=== PATIENT | female | born 1945 | race Caucasian/White ===

== ENCOUNTER 2017-02-23 07:38 | Emergency (ER) | payer MEDICARE, OTHER ==
[2017-02-23 07:44] VITALS: BP 113/63
[2017-02-23] MEDS ORDERED: HYDROXYZINE HCL 10 MG TABLET PO ONE (08:15)
--- NOTE | 2017-02-23 08:15 | ER Document Report ---
ED Skin Rash/Insect Bite/Abscs - General Chief Complaint: Bee Sting Stated Complaint: POSSIBLE INSECT BITE Time Seen by Provider: 02/23/17 07:58 Mode of Arrival: Ambulatory Information source: Patient Notes: Patient is a 71-year-old female who presents to the ER today for bee sting yesterday at noon to her left eyelid. Patient states that it did not start swelling or turning red until this morning when she woke up. Patient states that it is red and a little swollen, she denies any blurred vision, eye pain, trouble breathing, hives anywhere or other symptoms. TRAVEL OUTSIDE OF THE [place] IN LAST 30 DAYS: No - Related Data Allergies/Adverse Reactions: amoxicillin Allergy (Verified 02/23/17 07:44) ciprofloxacin [From Cipro] Allergy (Verified 02/23/17 07:44) ciprofloxacin HCl [From Cipro] Allergy (Verified 02/23/17 07:44) Sulfa (Sulfonamide Antibiotics) Allergy (Verified 02/23/17 07:44) Past Medical History - General Information source: Patient - Social History Smoking Status: Never Smoker Chew tobacco use (# tins/day): No Frequency of alcohol use: None Drug Abuse: None Family History: Reviewed & Not Pertinent - Past Medical History Cardiac Medical History: Reports: Hx Hypertension Renal/ Medical History: Denies: Hx Peritoneal Dialysis Musculoskeltal Medical History: Reports Hx Arthritis Past Surgical History: Reports: Hx Section, Hx Cholecystectomy, Hx Orthopedic Surgery - Carpal tunnel, Rotator cuff bilat great toe Tonsils, Hx Tonsillectomy - Immunizations Immunizations up to date: Yes Hx Diphtheria, Pertussis, Tetanus Vaccination: Yes Review of Systems - Review of Systems Constitutional: No symptoms reported EENT: No symptoms reported Cardiovascular: No symptoms reported Respiratory: No symptoms reported Gastrointestinal: No symptoms reported Genitourinary: No symptoms reported Female Genitourinary: No symptoms reported Musculoskeletal: No symptoms reported Skin: See HPI Hematologic/Lymphatic: No symptoms reported Neurological/Psychological: No symptoms reported Physical Exam - Vital signs Vitals: Temp Pulse Resp BP Pulse Ox 98.4 F 56 L 18 113/63 99 02/23/17 07:39 02/23/17 07:39 02/23/17 07:39 02/23/17 07:39 02/23/17 07:39 - Notes Notes: PHYSICAL EXAMINATION: GENERAL: Well-appearing and in no acute distress. HEAD: Atraumatic, normocephalic. EYES: Pupils equal round and reactive to light, extraocular movements intact, sclera anicteric, conjunctiva are normal. ENT: Airway patent NECK: Normal range of motion, supple without lymphadenopathy LUNGS: CTAB and equal. No wheezes rales or rhonchi. HEART: Regular rate and rhythm without murmurs EXTREMITIES: Normal range of motion, no pitting edema. No cyanosis. NEUROLOGICAL: Cranial nerves grossly intact. Normal sensory/motor exams. PSYCH: Normal mood, normal affect. SKIN: Warm, Dry, normal turgor, erythema to left upper eyelid only, no edema or discharge noted Course - Vital Signs Vital signs: Temp Pulse Resp BP Pulse Ox 98.4 F 56 L 16 113/63 99 02/23/17 07:39 02/23/17 07:39 02/23/17 07:55 02/23/17 07:39 02/23/17 07:39 Discharge - Discharge Clinical Impression: Bee sting Qualifiers: Encounter type: initial encounter Injury intent: accidental or unintentional Qualified Code(s): T63.441A - Toxic effect of venom of bees, accidental ( unintentional), initial encounter Condition: Stable Disposition: HOME, SELF-CARE Additional Instructions: Return immediately for any new or worsening symptoms. Follow up with primary care provider, call tomorrow to make followup appointment. Prescriptions: Hydroxyzine HCl 10 mg PO Q8 PRN #15 tablet PRN Reason:
== END 2017-02-23 08:20 | disposition home or self-care (01) ==
LOC: ER 07:38
DX: T63.441A Toxic effect of venom of bees, accidental (unintentional), initial encounter (principal); L53.0 Toxic erythema; I10 Essential (primary) hypertension; Z88.0 Allergy status to penicillin; Z88.1 Allergy status to other antibiotic agents; Z88.2 Allergy status to sulfonamides
CPT/HCPCS: 99282; A9270

== ENCOUNTER 2017-11-23 19:22 | Emergency (ER) | payer MEDICARE, OTHER ==
--- NOTE | 2017-11-23 20:12 | ER Document Report ---
ED Medical Screen (RME) - General Chief Complaint: Abdominal Pain Stated Complaint: ABDOMINAL PAIN Time Seen by Provider: 11/23/17 20:06 Notes: This 72-year-old female patient had colonoscopy with polypectomy done and [place] this morning. About 4 PM this afternoon she developed mid abdominal pain with a temperature of 100. She took Tylenol for her fever. There is no nausea or vomiting. I have greeted and performed a rapid initial assessment of this patient. A comprehensive ED assessment and evaluation of the patient, analysis of test results and completion of the medical decision making process will be conducted by additional ED providers. TRAVEL OUTSIDE OF THE [place] IN LAST 30 DAYS: No - Related Data Allergies/Adverse Reactions: amoxicillin Allergy (Verified 02/23/17 07:44) ciprofloxacin [From Cipro] Allergy (Verified 02/23/17 07:44) ciprofloxacin HCl [From Cipro] Allergy (Verified 02/23/17 07:44) Sulfa (Sulfonamide Antibiotics) Allergy (Verified 02/23/17 07:44) Past Medical History - Social History Chew tobacco use (# tins/day): No Frequency of alcohol use: None Drug Abuse: None - Past Medical History Cardiac Medical History: Reports: Hx Hypertension Renal/ Medical History: Denies: Hx Peritoneal Dialysis Musculoskeltal Medical History: Reports Hx Arthritis Past Surgical History: Reports: Hx Section, Hx Cholecystectomy, Hx Orthopedic Surgery - Carpal tunnel, Rotator cuff bilat great toe Tonsils, Hx Tonsillectomy - Immunizations Immunizations up to date: Yes Hx Diphtheria, Pertussis, Tetanus Vaccination: Yes Physical Exam - Vital signs Vitals: Temp Pulse Resp BP Pulse Ox 98.9 F 72 20 122/54 L 97 11/23/17 19:26 11/23/17 19:26 11/23/17 19:26 11/23/17 19:26 11/23/17 19:26 Course - Vital Signs Vital signs: Temp Pulse Resp BP Pulse Ox 98.9 F 72 20 122/54 L 97 11/23/17 19:26 11/23/17 19:26 11/23/17 19:26 11/23/17 19:26 11/23/17 19:26
[2017-11-23 20:41] LABS: ABSOLUTE EOSINOPHILS # (AUTO) 0.4 10^3/uL (0.0-0.6); ABSOLUTE LYMPHOCYTES (AUTO) 1.9 10^3/uL (0.5-4.7); ABSOLUTE MONOCYTES (AUTO) 0.6 10^3/uL (0.1-1.4); ABSOLUTE NEUT (AUTO) 8.6 10^3/uL (1.7-8.2); BASOPHILS % (AUTO) 0.4 % (0-2); EOSINOPHILS % (AUTO) 3.2 % (0-6); HEMATOCRIT 33.4 % (36.0-47.0); HEMOGLOBIN 11.3 g/dL (12.0-15.5); LYMPHOCYTES % (AUTO) 16.6 % (13-45); MEAN CORPUSCULAR HGB CONC 33.8 g/dL (32.0-36.0); MEAN CORPUSCULAR VOLUME 89 fl (80-97); MONOCYTES % (AUTO) 4.9 % (3-13); PLATELET COUNT 245 10^3/uL (150-450); RED BLOOD COUNT 3.76 10^6/uL (3.72-5.28); RED CELL DISTRIBUTION WIDTH 14.1 % (11.5-14.0); SEGMENTED NEUTROPHILS % (AUTO) 74.9 % (42-78); TOTAL CELLS COUNTED % (AUTO) 100 %; WHITE BLOOD COUNT 11.5 10^3/uL (4.0-10.5)
--- NOTE | 2017-11-23 20:51 | RADIOLOGY REPORT (SQ) ---
EXAM DESCRIPTION: ACUTE ABDOMEN SERIES COMPLETED DATE/TIME: 11/23/2017 8:36 pm REASON FOR STUDY: Colonoscopy w/polypectomy this AM,mid-abd pain,fev COMPARISON: None. NUMBER OF VIEWS: Three views. TECHNIQUE: Frontal chest, supine abdomen and upright/decubitus abdomen radiographic images acquired. LIMITATIONS: None. FINDINGS: CHEST: Lungs clear of infiltrates. FREE AIR: None. No abnormal gas collections. BOWEL GAS PATTERN: Nonobstructive pattern. No dilated loops or air fluid levels. CALCIFICATIONS: No suspicious calcifications. HARDWARE: None in the abdomen. Hardware in the shoulders. SOFT TISSUES: No gross mass or suggestion of organomegaly. BONES: No acute fracture. No worrisome bone lesions. OTHER: No other significant finding. IMPRESSION: NO RADIOGRAPHIC EVIDENCE FOR ACUTE ABDOMINAL DISEASE. TECHNICAL DOCUMENTATION: JOB ID: [id number] [employer]- All Rights Reserved Reading location - IP/workstation name: [email or web address]
[2017-11-23 21:00] LABS: ALANINE AMINOTRANSFERASE 85 U/L (9-52); ALKALINE PHOSPHATASE 97 U/L (38-126); ANION GAP 10 (5-19); ASPARTATE AMINO TRANSFERASE 71 U/L (14-36); BILIRUBIN,DIRECT 0.2 mg/dL (0.0-0.4); BILIRUBIN,TOTAL 0.3 mg/dL (0.2-1.3); BLOOD UREA NITROGEN 15 mg/dL (7-20); CALCIUM 9.6 mg/dL (8.4-10.2); CARBON DIOXIDE 31 mmol/L (22-30); CHLORIDE 104 mmol/L (98-107); GLUCOSE 117 mg/dL (75-110); POTASSIUM 3.7 mmol/L (3.6-5.0); SODIUM 144.9 mmol/L (137-145); TOTAL PROTEIN 6.4 g/dL (6.3-8.2)
--- NOTE | 2017-11-23 21:01 | ER Document Report ---
ED GI/ - General Chief Complaint: Abdominal Pain Stated Complaint: ABDOMINAL PAIN Time Seen by Provider: 11/23/17 20:06 Notes: The patient is a 72-year-old female who presents with mid abdominal pain and temperature of 100. She had a routine colonoscopy with polypectomy done in [place] earlier this morning. At 4 PM, her symptoms started. She took Tylenol for her temperature. She denies nausea or vomiting. Denies diarrhea, constipation, hematemesis, blood in her stool, dysuria or flank pain. TRAVEL OUTSIDE OF THE [place] IN LAST 30 DAYS: No - Related Data Allergies/Adverse Reactions: amoxicillin Allergy (Verified 02/23/17 07:44) ciprofloxacin [From Cipro] Allergy (Verified 02/23/17 07:44) ciprofloxacin HCl [From Cipro] Allergy (Verified 02/23/17 07:44) Sulfa (Sulfonamide Antibiotics) Allergy (Verified 02/23/17 07:44) Past Medical History - General Information source: Patient - Social History Smoking Status: Never Smoker Chew tobacco use (# tins/day): No Frequency of alcohol use: None Drug Abuse: None Family History: Reviewed & Not Pertinent Patient has suicidal ideation: No Patient has homicidal ideation: No - Past Medical History Cardiac Medical History: Reports: Hx Hypertension Renal/ Medical History: Denies: Hx Peritoneal Dialysis Musculoskeltal Medical History: Reports Hx Arthritis Past Surgical History: Reports: Hx Section, Hx Cholecystectomy, Hx Orthopedic Surgery - Carpal tunnel, Rotator cuff bilat great toe Tonsils, Hx Tonsillectomy - Immunizations Immunizations up to date: Yes Hx Diphtheria, Pertussis, Tetanus Vaccination: Yes Review of Systems - Review of Systems Notes: REVIEW OF SYSTEMS: CONSTITUTIONAL: -fevers, -chills EENT: -eye pain, -difficulty swallowing, -nasal congestion CARDIOVASCULAR: -chest pain, -syncope. RESPIRATORY: -cough, -SOB GASTROINTESTINAL: +mid abdominal pain, -nausea, -vomiting, -diarrhea GENITOURINARY: -dysuria, -hematuria MUSCULOSKELETAL: -back pain, -neck pain SKIN: -rash or skin lesions. HEMATOLOGIC: -easy bruising or bleeding. LYMPHATIC: -swollen, enlarged glands. NEUROLOGICAL: -altered mental status or loss of consciousness, -headache, - neurologic symptoms PSYCHIATRIC: -anxiety, -depression. ALL OTHER SYSTEMS REVIEWED AND NEGATIVE. Physical Exam - Vital signs Vitals: Temp Pulse Resp BP Pulse Ox 98.9 F 72 20 122/54 L 97 11/23/17 19:26 11/23/17 19:26 11/23/17 19:11/23/17 19:11/23/17 19:26 - Notes Notes: PHYSICAL EXAMINATION: GENERAL: Well-appearing, well-nourished and in no acute distress. HEAD: Atraumatic, normocephalic. EYES: Pupils equal round and reactive to light, extraocular movements intact, sclera anicteric, conjunctiva are normal. ENT: nares patent, oropharynx clear without exudates. Moist mucous membranes. NECK: Normal range of motion, supple without lymphadenopathy LUNGS: Breath sounds clear to auscultation bilaterally and equal. No wheezes rales or rhonchi. HEART: Regular rate and rhythm without murmurs ABDOMEN: Soft, mild periumbilical tenderness, normoactive bowel sounds. No guarding, no rebound. No masses appreciated. EXTREMITIES: Normal range of motion, no pitting or edema. No cyanosis. NEUROLOGICAL: Cranial nerves grossly intact. Normal speech, normal gait. Normal sensory and motor exams. PSYCH: Normal mood, normal affect. SKIN: Warm, Dry, normal turgor, no rashes or lesions noted. Course - Re-evaluation Re-evalutation: Patient seen with abdominal pain after a colonoscopy. Right x-ray does not show any free air, but CT abdomen/pelvis obtained due to her tenderness. No CT evidence for bowel perforation and she feels much better while in the emergency room. Provide her a copy of her CAT scan report, which shows possible malignant paraesophageal lymph node and right adnexal mass. Patient said that she has known esophageal dysmotility and has had multiple EGDs for this evaluation, so esophageal neoplasm is less likely. She has also seen a mechanical ordnance assembler for this cyst. Told her that she must follow-up with the mechanical ordnance assembler for comparison. She feels much better while in the ER and is passing a large amount of gas. Instructed her to stay hydrated and hold her blood pressure medications for the next 2 days. Given very strict return precautions and she understands. - Vital Signs Vital signs: Temp Pulse Resp BP Pulse Ox 98.6 F 72 16 111/50 L 96 11/23/17 23:23 11/23/17 19:26 11/23/17 23:23 11/23/17 23:23 11/23/17 23:23 - Laboratory Result Diagrams: 11/23/17 20:20 11/23/17 20:20 Laboratory results interpreted by me: 11/23/17 11/23/17 20:20 20:20 WBC 11.5 H Hgb 11.3 L Hct 33.4 L RDW 14.1 H Absolute Neutrophils 8.6 H Carbon Dioxide 31 H Est GFR (Non-Af Amer) 50 L Glucose 117 H AST 71 H ALT 85 H - Diagnostic Test Radiology reviewed: Image reviewed, Reports reviewed Radiology results interpreted by me: Abdominal x-ray: NAD CT A/P: 1. No CT evidence for bowel perforation. Dilated small bowel loop in the left upper quadrant measuring 3.5 cm in diameter, may represent focal ileus. 2. Colonic diverticulosis. Duodenal diverticulum. 3. A 3.2 cm cystic lesion at the right adnexa. This can be better evaluated with pelvic ultrasound. 4. Wall thickening at the distal esophagus, may be seen with esophagitis or neoplasm. Correlation with recent upper endoscopy recommended. 5. Mildly prominent paraesophageal lymph node, may be reactive versus metastatic. PET/ CT as clinically warranted. 6. Mild cardiomegaly. Discharge - Discharge Clinical Impression: Abdominal pain Qualifiers: Abdominal location: unspecified location Qualified Code(s): R10.9 - Unspecified abdominal pain Condition: Stable Disposition: HOME, SELF-CARE Additional Instructions: There is no evidence of a colon perforation today. Drink plenty of water. Take the results of your CAT scan to your primary care physician for further evaluation of the enlarged lymph node near your esophagus and to compare your known ovarian cyst with the old results. Return to the ER if you have worsening pain, vomiting or you have any other concerns. ABDOMINAL PAIN: There are many causes of abdominal pain. Pain can mean a serious problem requiring surgery (such as appendicitis). It can also be an innocent problem that goes away on its own (such as a viral infection). Often, time must pass to determine the cause of pain. The physician does not feel that hospitalization is necessary, at present. Things may change within the next 24 hours. Call the doctor or come back for re- examination if any problems occur, such as: (1) Pain that becomes more severe, steady, or becomes concentrated in one specific area. Also, pain that is more severe with movement or coughing. (2) Vomiting that persists or becomes more frequent. (3) Blood in the vomitus, urine, or bowel movements. Blood in the stool may have a tarry or black appearance. (4) Shaking chills or fever greater than 100 degrees F. (5) The abdomen becomes more distended or swollen. (6) Bowel movements cease. (7) Failure to improve as expected. NORMAL EXAM AND WORKUP: At this time, your examination and workup show no significant abnormality. No significant abnormal physical findings are noted. All laboratory, EKG, and imaging (x-ray, CT scans, ultrasound) studies that were ordered show no significant abnormality. Although your examination and all studies that were ordered showed no significant abnormal finding, there are no examinations and no studies that are 100% accurate. There is always the possibility that some abnormality could exist and not be detected with physical examination or within the limits and capabilities of laboratory and other studies. You should return or follow up as you were instructed on your visit today for further evaluation if your symptoms do not resolve. FOLLOW-UP CARE: If you have been referred to a physician for follow-up care, call the physician s office for an appointment as you were instructed or within the next two days. If you experience worsening or a significant change in your symptoms, notify the physician immediately or return to the Emergency Department at any time for re-evaluation. Referrals: XAVIER RIOS MS, [employer] [Primary Care Provider] - Follow up as needed
[2017-11-23] MEDS ORDERED: NORMAL SALINE 1000 ML 1,000 ML IV ONE (21:15)
--- NOTE | 2017-11-23 23:29 | RADIOLOGY REPORT (SQ) ---
EXAM DESCRIPTION: CT ABD/PELVIS WITH IV ONLY COMPLETED DATE/TIME: 11/23/2017 10:49 pm REASON FOR STUDY: post-colonoscopy abdominal pain, perforation? COMPARISON: Abdominal series 11/23/2017. TECHNIQUE: CT scan of the abdomen and pelvis performed using helical scanning technique with dynamic intravenous contrast injection. No oral contrast. Images reviewed with lung, soft tissue, and bone windows. Reconstructed coronal and sagittal MPR images reviewed. Delayed images for evaluation of the urinary system also acquired. All images stored on PACS. All CT scanners at this facility use dose modulation, iterative reconstruction, and/or weight based d osing when appropriate to reduce radiation dose to as low as reasonably achievable (ALARA). [facility]: Dose Right [facility]: CareDose [facility]: Dose Right [facility]: Teradose 4D [facility]: mSilica CONTRAST TYPE AND DOSE: contrast/concentration: Isovue 370.00 mg/ml; Total Contrast Delivered: 85.0 ml; Total Saline Delivered: 39.0 ml RENAL FUNCTION: Creatinine 1.08 RADIATION DOSE: CT Rad equipment meets quality standard of care and radiation dose reduction techniq ues were employed. CTDIvol: 10.2 mGy. DLP: 1102 mGy-cm.. LIMITATIONS: None. FINDINGS: LOWER CHEST: No consolidation or pleural effusion. The heart is mildly enlarged. There i s wall thickening at the distal esophagus. Mildly prominent paraesophageal lymph node measuring 7 mm in short axis. LIVER: Normal size. Scattered calcifications within the liver, may represent granulomas. No dilated ducts. SPLEEN: Normal size. Small calcification at the spleen may represent a granuloma. PANCREAS: No significant calcifications. No adjacent inflammation or peripancreatic fluid collections . Pancreatic duct not dilated. GALLBLADDER: Surgically absent. ADRENAL GLANDS: No significant masses or asymmetry. RIGHT KIDNEY AND URETER: There is a 1.8 cm cyst at the right kidney. No significant calcifications. No hydronephrosis or hydroureter. LEFT KIDNEY AND URETER: No significant calcifications. No hydronephrosis or hydroureter. AORTA AND VESSELS: No abdominal aortic aneurysm. Scattered atherosclerotic calcifications within the abdominal aorta and its branches. RETROPERITONEUM: No retroperitoneal adenopathy, hemorrhage or masses. BOWEL AND PERITONEAL CAVITY: Dilated small bowel loops in the left upper quadrant measuring 3.5 cm in diameter. No free fluid or free air. There is a duodenal diverticulum. There is colonic diverticul osis with no CT evidence for acute diverticulitis. APPENDIX: Normal. PELVIS: The uterus is present. There is a 3.2 cm cystic lesion at the right adnexa. No free fluid. Partially distended bladder. ABDOMINAL WALL: Small fat containing umbilical hernia. BONES: Degenerative disc disease with diffuse disc bulging and vacuum disc phenomenon at L4-L5. IMPRESSION: 1. No CT evidence for bowel perforation. Dilated small bowel loop in the left upper adama drant measuring 3.5 cm in diameter, may represent focal ileus. 2. Colonic diverticulosis. Duodenal diverticulum. 3. A 3.2 cm cystic lesion at the right adnexa. This can be better evaluated with pelvic ultrasound. 4. Wall thickening at the distal esophagus, may be seen with esophagitis or neoplasm. Correlation wi th recent upper endoscopy recommended. 5. Mildly prominent paraesophageal lymph node, may be reactive versus metastatic. PET/ CT as clinic ally warranted. 6. Mild cardiomegaly. TECHNICAL DOCUMENTATION: JOB ID: [id number] [facility] Quality ID # [id number]: Final reports with documentation of one or more dose reduction techniques (e.g., Au tomated exposure control, adjustment of the mA and/or kV according to patient size, use of iterative reconstruction technique) 2010 [employer]- All Rights Reserved Reading location - IP/workstation name: [email or web address]
[2017-11-23 23:42] LABS: APPEARANCE,URINE CLEAR; BILIRUBIN,URINE NEGATIVE (NEGATIVE); COLOR,URINE YELLOW; GLUCOSE, URINE NEGATIVE (NEGATIVE); KETONES,URINE NEGATIVE (NEGATIVE); LEUKOCYTE ESTERASE,URINE TRACE (NEGATIVE); NITRITE,URINE NEGATIVE (NEGATIVE); PROTEIN,URINE NEGATIVE (NEGATIVE); URINE SPECIFIC GRAVITY 1.033
[2017-11-24 00:35] VITALS: BP 103/57
== END 2017-11-24 00:15 | disposition home or self-care (01) ==
LOC: ER 19:22
DX: R10.9 Unspecified abdominal pain (principal); R50.9 Fever, unspecified; I10 Essential (primary) hypertension; Z98.890 Other specified postprocedural states
CPT/HCPCS: 99284; 36415; 87040; 85025; 80053; 81001; 74022; 74177; J7030

== ENCOUNTER 2018-04-29 10:40 | Emergency (ER) | payer MEDICARE ==
[2018-04-29] MEDS ORDERED: MORPHINE SULFATE 10 MG/ML INJ IM ONE (11:36)
[2018-04-29] MEDS ORDERED: ONDANSETRON 4 MG TAB.RAPDIS PO ONE (11:36)
--- NOTE | 2018-04-29 11:48 | ER Document Report ---
ED General - General Chief Complaint: Hip Pain Stated Complaint: HIP/GROIN PAIN Time Seen by Provider: 04/29/18 10:55 Mode of Arrival: Ambulatory Information source: [facility], [facility] Records Notes: 72-year-old female with hypertension, chronic back pain, arthritis presents with complaint of left hip pain that started 1 week prior to arrival. Patient describes the pain as aching, throbbing and located along the lateral aspect of her left hip. She denies any recent injury but reports that she had foot surgery and was wearing a bootie For a couple of weeks. She states that just prior to her pain starting she went to the [employer] and walked around for approximately 5 hours. She denies any fever, chills, abdominal pain, chest pain. TRAVEL OUTSIDE OF THE [place] IN LAST 30 DAYS: No - HPI Onset: Last week Onset/Duration: Gradual, Persistent Quality of pain: Throbbing Severity: Moderate Associated symptoms: denies: Chest pain, Productive cough, Headache, Nausea, Vomiting, Shortness of breath Exacerbated by: Movement, Walking Relieved by: Denies Similar symptoms previously: Yes Recently seen / treated by doctor: Yes - Related Data Allergies/Adverse Reactions: amoxicillin Allergy (Verified 02/23/17 07:44) ciprofloxacin [From Cipro] Allergy (Verified 02/23/17 07:44) ciprofloxacin HCl [From Cipro] Allergy (Verified 02/23/17 07:44) Sulfa (Sulfonamide Antibiotics) Allergy (Verified 02/23/17 07:44) Past Medical History - General Information source: Patient, [facility] Records - Social History Smoking Status: Former Smoker Chew tobacco use (# tins/day): No Frequency of alcohol use: None Drug Abuse: None Lives with: Family Family History: Reviewed & Not Pertinent Patient has suicidal ideation: No Patient has homicidal ideation: No - Past Medical History Cardiac Medical History: Reports: Hx Hypertension Renal/ Medical History: Denies: Hx Peritoneal Dialysis Musculoskeletal Medical History: Reports Hx Arthritis Past Surgical History: Reports: Hx Section, Hx Cholecystectomy, Hx Orthopedic Surgery - Carpal tunnel, Rotator cuff bilat great toe Tonsils, Hx Tonsillectomy - Immunizations Immunizations up to date: Yes Hx Diphtheria, Pertussis, Tetanus Vaccination: Yes Review of Systems - Review of Systems Notes: REVIEW OF SYSTEMS: CONSTITUTIONAL : Denies fever, chills, or sweats. Denies recent illness. Denies weight loss, recent hospitalizations. EENT: Denies visual changes, eye pain. Denies sore throat, oral lesions, difficulty swallowing. CARDIOVASCULAR: Denies chest pain. Denies palpitations. Denies lower extremity edema. RESPIRATORY: Denies cough. Denies shortness of breath, wheezing. GASTROINTESTINAL: Denies abdominal pain or distention. Denies nausea, vomiting , or diarrhea. Denies blood in vomitus, stools, or per rectum. Denies black, tarry stools. Denies constipation. GENITOURINARY: Denies difficulty urinating, painful urination, frequency, blood in urine, or vaginal discharge. MUSCULOSKELETAL: Denies back or neck pain or stiffness. SKIN: Denies rash, lesions or sores. HEMATOLOGIC : Denies easy bruising or bleeding. LYMPHATIC: Denies swollen glands. NEUROLOGICAL: Denies confusion or altered mental status. Denies loss of consciousness. Denies dizziness or lightheadedness. Denies headache. Denies weakness or paralysis. Denies problems difficulty with ambulation, slurred speech. Denies sensory loss, numbness, or tingling. Denies seizures. PSYCHIATRIC: Denies anxiety or stress. Denies depression, suicidal ideation, or homicidal ideation. Denies visual or auditory hallucinations. Physical Exam - Vital signs Vitals: Temp Pulse Resp BP Pulse Ox 98.6 F 55 L 16 130/46 H 99 04/29/18 10:46 04/29/18 10:46 04/29/18 10:46 04/29/18 10:46 04/29/18 10:46 Interpretation: Bradycardic - Notes Notes: PHYSICAL EXAMINATION: GENERAL: Well-appearing, well-nourished and in no acute distress. HEAD: Atraumatic, normocephalic. EYES: Pupils equal round and reactive to light, extraocular movements intact, conjunctiva are normal. ENT: Nares patent, oropharynx clear without exudates. Moist mucous membranes. NECK: Normal range of motion, supple without lymphadenopathy LUNGS: Breath sounds clear to auscultation bilaterally and equal. No wheezes rales or rhonchi. HEART: Regular rate and rhythm without murmurs ABDOMEN: Soft, nontender, nondistended abdomen. No guarding, no rebound. No masses appreciated. Female : deferred Musculoskeletal: Normal range of motion, no pitting or edema. No cyanosis. Full range of motion of the left hip. Pain with palpitation along the lateral aspect of the left hip. No associated erythema, crepitus. NEUROLOGICAL: Cranial nerves grossly intact. Normal speech, normal gait. Normal sensory, motor exams PSYCH: Normal mood, normal affect. SKIN: Warm, Dry, normal turgor, no rashes or lesions noted. Course - Re-evaluation Re-evalutation: 72-year-old female presents with left hip pain that started 1 week prior to arrival. Pain is located from the greater trochanter on 1 approximately 6 inches. She describes it as a burning aching pain that has been removed with her from her normal activities. She denies any falls but states that she has [facility] prior to experiencing the pain. Patient is currently in pain management and undergone a Toradol injection into the. Patient denies worsening of pain, erythema to the site fever. States the pain was just prior to the injection as it was afterwards. Patient has full range of motion lumbar. No obvious deformity. X-rays were obtained and showed no acute process. 04/29/18 13:32 Patient reports great improvement of pain after receiving morphine 4 mg IM. She is sitting up, smiling and states that she is "grateful to be out of pain". Patient is moving her leg and able to ambulate without difficulty. Patient advised to ice the hip, take Motrin and Vicodin. Patient was evaluated and treated as appropriate for the patient's presenting symptoms and complaint, with consideration of any critical or life threatening conditions that may be associated with their obtained history and exam as noted above. All results were discussed with patient. Patient provided the opportunity to ask questions, and express concerns. Patient was educated on treatments based on their presumed diagnosis as noted above. At this time we will discharge the patient with return precautions and follow-up recommendations. Verbal discharge instructions given a the bedside. Medication warnings reviewed. Patient is in agreement with this plan and has verbalized understanding of return precautions. After careful consideration I feel that that patient can be safely discharged from the emergency department, they were advised to followup with a primary care physician in 2-3 days. Dictation on this chart was performed using voice recognition software and may result in unintended grammatical, spelling, syntax or errors. 10/20/18 20:15 Patient - Vital Signs Vital signs: Temp Pulse Resp BP Pulse Ox 97.9 F 54 L 16 114/70 100 04/29/18 14:21 04/29/18 14:21 04/29/18 14:21 04/29/18 14:21 04/29/18 14:21 - Diagnostic Test Radiology reviewed: Image reviewed, Reports reviewed Discharge - Discharge Clinical Impression: Left hip pain Bursitis Qualifiers: Bursitis location: hip Hip bursitis location: unspecified Laterality: left Qualified Code(s): M70.72 - Other bursitis of hip, left hip Chronic back pain Qualifiers: Back pain location: low back pain Back pain laterality: unspecified Sciatica presence: without sciatica Qualified Code(s): M54.5 - Low back pain Condition: Good Disposition: HOME, SELF-CARE Instructions: Bursitis ([facility]), Muscle Strain ([facility]) Additional Instructions: Your x-rays today did not show any evidence of fracture. Your symptoms are likely secondary to bursitis which is inflammation of the fluid-filled pads that act as cushions for your joints. You can take Motrin 600 mg every 6 hours with food. He will be provided a short course of Vicodin that you should take interchangeably every 6 hours. Please return to the emergency department if you experience a worsening of pain, redness over the hip. Follow up with your [id number] hours for further care or return to the ED IMMEDIATELY if symptoms worsen or you have any concerns. If you cannot afford to follow up with your primary care physician a list of low cost clinics have been provided at the end of your discharge papers as well. Most prescribed medications have multiple side effects. The safest thing to do is when filling your prescription speak to your pharmacist regarding possible interactions with your normal home medications and over the counter medications such as Ibuprofen, Tylenol, Benadryl. If you experience any symptoms that cause you discomfort or concern you should discontinue the medication immediately and return to the emergency room or call your primary care physician. Prescriptions: Hydrocodone/Acetaminophen [Vicodin 5-300 mg Tablet] 1 each PO Q6H PRN #8 tablet PRN Reason: For Pain Scale 2-3 Forms: Elevated Blood Pressure Referrals: XAVIER RIOS MS, [employer] [Primary Care Provider] - Follow up as needed
--- NOTE | 2018-04-29 12:33 | RADIOLOGY REPORT (SQ) ---
EXAM DESCRIPTION: HIP LEFT AP/LATERAL COMPLETED DATE/TIME: 04/29/2018 11:57 am REASON FOR STUDY: pain COMPARISON: 09/13/2014 left hip films 11/23/2017 abdominal films NUMBER OF VIEWS: Two views. TECHNIQUE: AP pelvis and additional frog-leg view of the left hip. LIMITATIONS: None. FINDINGS: MINERALIZATION: Normal. LEFT HIP: No fracture or dislocation. No worrisome bone lesions. RIGHT HIP: No fracture or dislocation. No worrisome bone lesions. PUBIS AND ISCHIUM: No fracture. PELVIS: No fracture. SACRUM: No fracture or dislocation. No worrisome bone lesions. LOWER LUMBAR SPINE: Unremarkable SOFT TISSUES: No findings. OTHER: No other significant finding. IMPRESSION: NEGATIVE STUDY OF THE LEFT HIP AND PELVIS. NO RADIOGRAPHIC EVIDENCE OF ACUTE INJURY. TECHNICAL DOCUMENTATION: JOB ID: [id number]- All Rights Reserved Reading location - IP/workstation name: [email or web address]
[2018-04-29 14:23] VITALS: BP 114/70
== END 2018-04-29 14:24 | disposition home or self-care (01) ==
LOC: ER 10:40
DX: M25.552 Pain in left hip (principal); M70.72 Other bursitis of hip, left hip; M54.5 Low back pain; I10 Essential (primary) hypertension; Z90.49 Acquired absence of other specified parts of digestive tract; Z88.0 Allergy status to penicillin; Z88.3 Allergy status to other anti-infective agents; Z88.2 Allergy status to sulfonamides
CPT/HCPCS: 99283; 96372; 73502; A9270; J2270; S0119

== ENCOUNTER 2020-01-03 13:46 | Emergency (ER) | payer MEDICARE, OTHER ==
[2020-01-03 13:53] VITALS: BP 120/67
[2020-01-03] MEDS ORDERED: DIPH/PERTUSS(ACELL)/TETANUS VAC/PF 0.5 ML SYR (>=10YO) IM ONE (14:42)
--- NOTE | 2020-01-03 14:46 | ER Document Report ---
HPI - HPI Patient complains to provider of: Cat scratch Time Seen by Provider: 01/03/20 14:38 Onset: Just prior to arrival Associated Symptoms: None Exacerbated by: Denies Notes: This 74-year-old female who was trying to toni a referral to scratched both medial aspects of her wrist. To arrival. Past Medical History - General Information source: Patient - Social History Smoking Status: Never Smoker Cigarette use (# per day): No Chew tobacco use (# tins/day): No Smoking Education Provided: No Frequency of alcohol use: None Drug Abuse: None Family History: Reviewed & Not Pertinent - Past Medical History Cardiac Medical History: Reports: Hx Hypertension Renal/ Medical History: Denies: Hx Peritoneal Dialysis Musculoskeletal Medical History: Reports Hx Arthritis Past Surgical History: Reports: Hx Section, Hx Cholecystectomy, Hx Orthopedic Surgery - Carpal tunnel, Rotator cuff bilat great toe Tonsils, Hx Tonsillectomy - Immunizations Immunizations up to date: Yes Hx Diphtheria, Pertussis, Tetanus Vaccination: Yes Vertical Provider Document - CONSTITUTIONAL Agree With Documented VS: Yes - INFECTION CONTROL TRAVEL OUTSIDE OF THE [place] IN LAST 30 DAYS: No - HEENT HEENT: Atraumatic, Conjuctival Injection, Normocephalic, PERRLA - NECK Neck: Normal Inspection - RESPIRATORY Respiratory: Breath Sounds Normal, No Respiratory Distress - CARDIOVASCULAR Cardiovascular: Regular Rate, Regular Rhythm - GI/ABDOMEN Gastrointestinal: Abdomen Soft, Abdomen Non-Tender - MUSCULOSKELETAL/EXTREMETIES Musculoskeletal/Extremeties: MAEW - DERM Notes: Abrasions noted to bilateral medial wrist ocean rapid capillary refill distal pulses intact Course - Re-evaluation Re-evalutation: 01/03/20 14:44 Patient and I had a long conversation about follow-up in 2 days for reevaluation as well as when return sooner for any redness drainage infection tenderness pain or otherwise feeling that she may become infected. - Vital Signs Vital signs: Temp Pulse Resp BP Pulse Ox 98.8 F 62 16 120/67 99 01/03/20 13:52 01/03/20 13:52 01/03/20 13:52 01/03/20 13:52 01/03/20 13:52 Discharge - Discharge Clinical Impression: Cat scratch Condition: Good Disposition: HOME, SELF-CARE Instructions: Cat Scratch Fever ([facility]) Prescriptions: Clindamycin HCl [Cleocin HCl] 150 mg PO TID #30 capsule Referrals: SULEMA CARDONA MD [Primary Care Provider] - Follow up as needed
== END 2020-01-03 15:15 | disposition home or self-care (01) ==
LOC: ER 13:46
DX: S60.812A Abrasion of left wrist, initial encounter (principal); S60.811A Abrasion of right wrist, initial encounter; W55.03XA Scratched by cat, initial encounter; Y93.K9 Activity, other involving animal care; Y92.009 Unspecified place in unspecified non-institutional (private) residence as the place of occurrence of the external cause; Z23 Encounter for immunization; I10 Essential (primary) hypertension
CPT/HCPCS: 90471; 90715; 99283

== ENCOUNTER → 2020-02-22 | Outpatient (CLI) | payer MEDICARE, OTHER ==
[2020-02-22 11:32] LABS: ABSOLUTE EOSINOPHILS # (AUTO) 0.2 10^3/uL (0.0-0.6); ABSOLUTE MONOCYTES (AUTO) 0.5 10^3/uL (0.1-1.4); ABSOLUTE NEUT (AUTO) 5.4 10^3/uL (1.7-8.2); BASOPHILS % (AUTO) 0.7 % (0-2); EOSINOPHILS % (AUTO) 2.9 % (0-6); HEMATOCRIT 31.5 % (36.0-47.0); HEMOGLOBIN 10.7 g/dL (12.0-15.5); LYMPHOCYTES % (AUTO) 13.5 % (13-45); MEAN CORPUSCULAR HEMOGLOBIN 30.1 pg (27.0-33.4); MEAN CORPUSCULAR HGB CONC 33.9 g/dL (32.0-36.0); MEAN CORPUSCULAR VOLUME 89 fl (80-97); MONOCYTES % (AUTO) 6.7 % (3-13); PLATELET COUNT 192 10^3/uL (150-450); RED BLOOD COUNT 3.54 10^6/uL (3.72-5.28); RED CELL DISTRIBUTION WIDTH 15.2 % (11.5-14.0); SEGMENTED NEUTROPHILS % (AUTO) 76.2 % (42-78); TOTAL CELLS COUNTED % (AUTO) 100 %; WHITE BLOOD COUNT 7.1 10^3/uL (4.0-10.5)
[2020-02-22 11:58] LABS: ALBUMIN 4.3 g/dL (3.5-5.0); ALKALINE PHOSPHATASE 44 U/L (38-126); ANION GAP 6 (5-19); ASPARTATE AMINO TRANSFERASE 26 U/L (14-36); BILIRUBIN,TOTAL 0.6 mg/dL (0.2-1.3); BLOOD UREA NITROGEN 28 mg/dL (7-20); C-REACTIVE PROTEIN 8.8 mg/L (<10.0); CALCIUM 9.2 mg/dL (8.4-10.2); CARBON DIOXIDE 30 mmol/L (22-30); CHLORIDE 102 mmol/L (98-107); GLUCOSE 98 mg/dL (75-110); POTASSIUM 4.5 mmol/L (3.6-5.0); TOTAL PROTEIN 6.8 g/dL (6.3-8.2); URIC ACID 6.6 mg/dL (2.5-7.5)
[2020-02-22 12:34] LABS: ERYTHROCYTE SEDIMENTATION RATE 20 mm/hr (0-30)
== END ==
LOC: OD 09:55
PROVIDERS: ATTEND Physician Assistant
DX: M25.50 Pain in unspecified joint (principal)
CPT/HCPCS: 36415; 80053; 84550; 85025; 85652; 86038; 86140; 86431

== ENCOUNTER → 2020-07-01 | Outpatient (CLI) | payer MEDICARE, OTHER ==
--- NOTE | 2020-07-02 13:15 | RADIOLOGY REPORT (SQ) ---
EXAM DESCRIPTION: MRI PELVIS WITHOUT IMAGES COMPLETED DATE/TIME: 07/01/2020 7:29 am COMPARISON: CT abdomen and pelvis, 11/23/2017. Left hip radiograph, 04/29/2018. MRI right hip, 2019. TECHNIQUE: Bilateral hip images acquired and stored on PACS. Large FOV fat and fluid sensitive sequ ences include pelvis and both hips. LIMITATIONS: None. FINDINGS: BONE CORTEX AND MARROW: There is improved appearance of the right femoral head consistent with resolved bone marrow edema. No evidence of bone marrow edema, mass or infiltrative process. Le ft hip arthroplasty with expected metallic artifact obscures detail at the left hip. HIPS: Artifact from the left obscures detail. The right femoral head has normal contour with no higinio dence of femoral head collapse edema. Normal femoroacetabular alignment. Small marginal osteophytes at the acetabulum with paralabral cyst noted. PELVIS, LOWER LUMBAR SPINE, SACROILIAC JOINTS: PELVIS : No insufficiency/stress fractures. No significant degenerative changes. Sacroiliac joints normal. L SPINE: No significant osteophytes or degenerative changes of the visualized lumbar spine. MUSCLES AND SOFT TISSUES: Adductors and piriformis normal. Abductors and greater trochanteric bursa n ormal without edema or fluid. Iliopsoas bursa without fluid. Hamstring attachments without edema or t ear. Postoperative changes in the lateral soft tissues of the left upper leg. New prominent left in guinal lymph node measures 1.5 x 1.1 cm. No suspicious adenopathy. PELVIC SOFT TISSUES: Uterus and ovaries have normal size. A right ovarian cyst is unchanged from pre vious examinations. There is colonic diverticulosis without evidence of diverticulitis. SCIATIC NERVE: Identified, without masses or abnormal signal. OTHER: No other significant finding. IMPRESSION: 1. New prominent left inguinal lymph node may be reactive. No suspicious adenopathy. 2. Left hip arthroplasty obscures detail. If there is concern for arthroplasty complication or loose magui further evaluation with plain film radiographs or CT may provide additional information. 3. Improved signal at the right femoroacetabular joint with mild osteoarthritis and small right paral abral cyst. TECHNICAL DOCUMENTATION: JOB ID: [id number] 2010 [employer]- All Rights Reserved REASON FOR STUDY: PELVIC AND PERINEAL PAIN R10.2 PELVIC AND PERINEAL PAIN PELVIC AND PERINEAL PAIN R10.2 PELVIC AND PERINEAL PAIN. Left hip pain after hip replacement ry 05/30/2019. Reading location - IP/workstation name: [email or web address]
== END ==
LOC: RAD 07:53
PROVIDERS: ATTEND Physician Assistant
DX: R10.2 Pelvic and perineal pain (principal)
CPT/HCPCS: 72195

== ENCOUNTER → 2020-08-06 | Outpatient (CLI) | payer MEDICARE, OTHER ==
--- NOTE | 2020-08-06 09:53 | RADIOLOGY REPORT (SQ) ---
EXAM DESCRIPTION: CT LT LOWER EXTREMITY WITHOUT IMAGES COMPLETED DATE/TIME: 08/06/2020 9:14 am REASON FOR STUDY: (M25.552)PAIN IN LEFT HIP COMPARISON: None. TECHNIQUE: Axial imaging performed through the Left hip with reformatted coronal and sagittal imaging windowed for bone and soft tissues. Images saved to PAC S. 3D IMAGING: Were 3D images as MIP, SSD, or volume rendering performed at the work station? !yes/no! LIMITATIONS: Metal artifact FINDINGS: SOFT TISSUES: No obvious swelling or foreign body. BONY STRUCTURES: Intact total hip arthroplasty. Components in expected location. No evidence of loo sening or infection. MINERALIZATION: Normal. OTHER: No other significant finding. IMPRESSION: Intact hip arthroplasty. Reading location - IP/workstation name: [email or web address]
== END ==
LOC: RAD 08:56
PROVIDERS: ATTEND Physician Assistant
DX: M25.552 Pain in left hip (principal)